=== PATIENT | male | born 1980 | race Two or more races ===

== ENCOUNTER 2022-10-13 10:18 | Emergency (ER) | payer MEDICAID ==
[~2022-10-13] VITALS: Ht 180.3 cm; Wt 96.4 kg
[2022-10-13 10:57] VITALS: BP 149/108
[2022-10-13] MEDS ORDERED: IBUP800T27 PO (11:35)
[2022-10-13] MEDS ORDERED: BENZ100C19 PO (11:35)
[2022-10-13] MEDS ORDERED: AMOX-277 PO (11:35)
== END 2022-10-13 11:47 | disposition home or self-care (01) ==
LOC: ER 10:18
DX: J03.90 Acute tonsillitis, unspecified (principal); H66.92 Otitis media, unspecified, left ear; Z79.899 Other long term (current) drug therapy
CPT/HCPCS: 71045

== ENCOUNTER 2023-09-29 11:52 | Emergency (ER) | payer MEDICAID ==
[~2023-09-29] VITALS: Ht 177.8 cm; Wt 105.0 kg
[~2023-09-29 11:52] MED LIST: AMOX875T4 PO; BENZ100C19 PO; BENZ100C97 PO; IBUP-1455 PO; IBUP-1456 PO; LORA10CA PO; TRAM50TA2 PO
[2023-09-29 13:13] LABS: Rapid Influenza A Negative (Negative); Rapid Influenza B Negative (Negative)
[2023-09-29 13:14] LABS: COVID19 ANTIGEN SOFIA FIA NEGATIVE (NEGATIVE)
[2023-09-29] MEDS ORDERED: AUG875T PO (14:00)
[2023-09-29] MEDS ORDERED: LIDO2SOL26 MT (14:00)
[2023-09-29 14:08] VITALS: BP 161/98; PULSE 94; RESP 18; TEMP 98.2; O2SAT 97
== END 2023-09-29 14:00 | disposition home or self-care (01) ==
LOC: ER 11:52
DX: J02.8 Acute pharyngitis due to other specified organisms (principal); B97.89 Other viral agents as the cause of diseases classified elsewhere; J04.0 Acute laryngitis; Z79.2 Long term (current) use of antibiotics; Z79.1 Long term (current) use of non-steroidal anti-inflammatories (NSAID); Z79.899 Other long term (current) drug therapy; Z20.822 Contact with and (suspected) exposure to COVID-19
CPT/HCPCS: 36415; 87426; 87804

== ENCOUNTER 2024-02-24 19:09 | Emergency (ER) | payer MEDICAID ==
[~2024-02-24 19:09] MED LIST changes: +AUG875T PO; +LIDO2SOL26 MT
== END 2024-02-24 19:33 | disposition left against medical advice (07) ==
LOC: ER 19:09
DX: M54.9 Dorsalgia, unspecified (principal); Z53.21 Procedure and treatment not carried out due to patient leaving prior to being seen by health care provider

== ENCOUNTER → 2024-04-14 | Emergency (ER) | payer BC, MEDICAID ==
[~2024-04-14] VITALS: Ht 180.3 cm; Wt 103.9 kg
[2024-04-14 17:20] VITALS: BP 164/86; RESP 18; O2SAT 98
[2024-04-14] MEDS: cloNIDine HCL 0.1 MG TAB PO ONE (18:45)
[2024-04-14 18:50] VITALS: PULSE 78
[2024-04-14 19:46] LABS: Basophils # (auto) 0 10 ^3/uL (0-0.2); Basophils % (auto) 0.3 % (0.0-2.0); Eosinophils # (auto) 0 10 ^3/uL (0-0.8); Eosinophils % (auto) 0.3 % (0.0-7.0); Lymphocytes # (auto) 1.7 10 ^3/uL (0.4-5.4); Lymphocytes % (auto) 17.7 % (10.0-50.0); Mean Corpuscular Hemoglobin 31.7 pg (28.0-32.0); Mean Corpuscular Hgb Conc. 34.2 g/dL (32.0-36.0); Mean Corpuscular Volume 92.9 fL (80.0-100.0); Monocytes # (auto) 0.6 10 ^3/uL (0-1.3); Monocytes % (auto) 6.6 % (0.0-12.0); Neutrophils # (auto) 7.3 10 ^3/uL (1.6-8.6); Neutrophils % (auto) 75.1 % (37.0-80.0); Nucleated Red Blood Cells % 0.2 %; Red Blood Cells 5.06 10^6/uL (4.5-5.90); Red Cell Distribution Width 13.5 % (11.8-14.3); White Blood Cell 9.7 10^3/uL (4.4-10.8)
[2024-04-14 19:52] LABS: Chloride 104 mmol/L (98-107); Sodium 137 mmol/L (136-145)
[2024-04-14 19:53] LABS: Anion Gap 7 (5-15); Calcium 10.1 mg/dL (8.5-10.1); Carbon Dioxide 26 mmol/L (20-30)
[2024-04-14 19:58] LABS: BUN/Creatinine Ratio 12.5 (10.0-20.0); Blood Urea Nitrogen 9 mg/dL (9-23); Glucose 133 mg/dL (74-106)
[2024-04-14] MEDS: ONDANSETRON ODT 4 MG TAB PO ONE (21:17)
== END | disposition left against medical advice (07) ==
LOC: ER 17:04
DX: I16.0 Hypertensive urgency (principal); R51.9 Headache, unspecified; R11.10 Vomiting, unspecified; Z79.899 Other long term (current) drug therapy; Z98.890 Other specified postprocedural states; Z79.1 Long term (current) use of non-steroidal anti-inflammatories (NSAID); Z88.1 Allergy status to other antibiotic agents
CPT/HCPCS: 36415; 80048; 82962; 85025; 93005; 99284; Q0162